=== PATIENT | male | born 1975 | race Caucasian/White ===

== ENCOUNTER → 2016-05-09 | Outpatient (CLI) | payer BC ==
--- NOTE | 2016-05-09 11:03 | KCIC ---
PROCEDURE MR of the left shoulder HISTORY Left shoulder pain. Rotator cuff repair 2002. Pain has progressed over 2 months. Previous surgery 2002. TECHNIQUE Standard multiplanar sequences are obtained. COMPARISON None FINDINGS Acromioclavicular joint is intact. Mild irregularity of the undersurface and bursal surface of the supraspinatus tendon. No measurable tear or rupture. Mild fluid in the subdeltoid bursa. Small glenohumeral joint effusion. Severe chondromalacia of the glenohumeral joint with small osteophytes. There is mild irregularity of the posterosuperior through posteroinferior labrum compatible with degeneration and possibly a degenerative tear. There is a tiny posteroinferior paralabral cyst. Anterosuperior sub labral foramen is incidentally noted. The biceps tendon is intact. No bone lesion or acute fracture. No acute soft tissue injury. IMPRESSION 1. Glenohumeral joint primary osteoarthritis. 2. Small subdeltoid bursal effusion without measurable rotator cuff tear. There is mild surface irregularity of the supraspinatus tendon. Electronically signed by: Jose Daniel Hamilton MD (May 09, 2016 11:00:13)
== END | disposition home or self-care (01) ==
LOC: KCIC MRI 09:00
PROVIDERS: ATTEND Family Medicine
DX: M25.512 Pain in left shoulder (principal); M19.012 Primary osteoarthritis, left shoulder
CPT/HCPCS: 73221

== ENCOUNTER → 2016-11-11 | Outpatient (CLI) | payer BC ==
[~2016-11-11] MED LIST: GADOBUTROL 7.5 MMOL/7.5 ML VIAL IV ONE
--- NOTE | 2016-11-11 13:55 | KCIC ---
Examination: MRI abdomen without and with IV contrast HISTORY: History of renal mass, abdominal pain COMPARISON: None available TECHNIQUE: Multiplanar, multisequence MR images of the abdomen at the level of the kidneys were performed without and with IV contrast. IV contrast used was 14 cc of gadovist FINDINGS: There is a 3.6 x 3.4 cm heterogeneous T1 signal, hyperintense T2 and heterogeneously enhancing mass identified in the posterior right kidney suspicious for renal cell cancer. There is no evidence of expansion of the renal veins. No radiologically significant retroperitoneal lymphadenopathy identified. The visualized pancreas, spleen, adrenals grossly appears unremarkable. IMPRESSION: 3.6 cm enhancing mass identified in the posterior right kidney, suspicious for renal cell cancer. Electronically signed by: Ravi Allison MD (11/11/2016 1:53 PM) [id number]
== END | disposition home or self-care (01) ==
LOC: KCIC MRI 10:00
PROVIDERS: ATTEND Urology
DX: R93.41 Abnormal radiologic findings on diagnostic imaging of renal pelvis, ureter, or bladder (principal)
CPT/HCPCS: 74183; A9585